=== PATIENT | male | born 2000 | race Caucasian/White ===

== ENCOUNTER 2020-07-07 05:43 | Day surgery (SDC) | payer OTHER, SELFPAY ==
[2020-07-07 06:16] VITALS: BP 146/72; PULSE 70; RESP 14; TEMP 37.1; O2SAT 100; BMI 26.6
[2020-07-07] MEDS: Lactated Ringers 1,000 ML 100 ML IV ×2 (06:27→08:30)
[2020-07-07] MEDS: Cefazolin 2 GM in 0.9% Normal Saline 100 ML IV (07:28)
[2020-07-07] MEDS: Bupiv/Epi 0.25% 30 ML Vial (07:46)
[2020-07-07] MEDS: Epinephrine (1 mg/ml) 1 MG/ML VIAL (07:46)
[2020-07-07 08:31] VITALS: BP 144/80; BP 146/72; PULSE 86; RESP 18; TEMP 36.1; O2SAT 100
--- NOTE | 2020-07-07 08:35 | PCM.OPRPT ---
Report of Operation Date of Procedure: 07/07/20 Pre-Operative Diagnosis: Locked, bucket handle tear lateral meniscus right knee Post-Operative Diagnosis: Same. Horizontal, peripheral red-red tear Surgery/Procedure Performed:: D & O arthroscopy with lateral meniscus repair right knee Description of Surgical Findings:: Primary Surgeon/Physician: Cl Coleman pre owned sales consultant: none pre owned sales consultant: Pre-Operative Diagnosis: Locked lateral meniscus tear right knee Post-Operative Diagnosis: same, horizontal peripheral, red-red tear Surgery/Procedure Performed: Arthroscopy with lateral meniscal repair right knee Estimated Blood Loss: minimal Specimen's Removed: none Type of Anesthesia: general ASA Class: 1 Indications: [ ] Patient has failed conservative measures and at this point has elected to undergo the above procedure. Procedure Description: The patient was greeted in the preoperative area. The [right ] knee was marked with surgical marker. Preoperative antibiotics were administered. The patient was then taken to the operating suite and placed in a supine position on operating room table. After adequate anesthesia was obtained and airway was secured a well-padded tourniquet was placed on patient's affected extremity. Leg was then prepped and draped in usual sterile fashion. Surgical timeout was performed and confirmed with all present and surgery was commenced. Standard anteromedial anterolateral portals were made and a 30? arthroscope was then inserted into the knee. [The patellofemoral joint, medial compartment, ACL and PCL were all without pathology. Entering the lateral compartment revealed the the was a horizontal tear of the lateral meniscus which was flipped forward between the lateral femoral condyle and the lateral tibial plateau. A probe was used through the medial portal to reduce the lateral meniscus back to it's normal position. The meniscal tissue was in excellent condition. The was a tear peripherally, just anterior to the popliteal hiatus. A meniscal rasp was used to stimulate bleeding in the interface of the tear. Subsequently, an Arthrex Cinch suture was employed in a horizontal mattress fashion to stabilize and repair the meniscus. Probing then revealed that the lateral meniscus was fixed in a stable fashion.]. At this point all instruments were removed. Arthroscopic portals were closed in a standard fashion. 30 cc of 0.5% Marcaine was then injected into the knee. Well-padded nonadherent dressing was applied and secured with an Waylon wrap. The patient was taken to the recovery room in stable condition. Type of Anesthesia:: General Anesthesiologist: Charlie Cope - Admit VTE Documentation VTE Present on Admission: No VTE Mechan Device Prophylaxis: SCD's, Thigh High KYLE Hose VTE Pharm Prophylaxis ordered?: Yes
[2020-07-07 08:45] VITALS: BP 123/97; BP 146/72; PULSE 78; RESP 18; O2SAT 100
[2020-07-07 09:00] VITALS: BP 144/88; BP 146/72; PULSE 82; RESP 16; O2SAT 100
[2020-07-07 09:12] VITALS: BP 137/78; BP 146/72; PULSE 76; RESP 16; TEMP 36.4; O2SAT 100
[2020-07-07] MEDS: HYDROcodone Bitartrate/Apap 5/325 Tablet PO (09:42)
[2020-07-07 10:10] VITALS: BP 133/67; BP 146/72; PULSE 80; RESP 16; TEMP 36.3; O2SAT 100
== END 2020-07-07 10:25 | disposition home or self-care (01) ==
LOC: SDC 05:45 → AC 05:47
PROVIDERS: PCP Family Medicine; Referring Provider Orthopaedic Surgery; Visit Provider Orthopaedic Surgery
PROC: (CPT 29870; principal; 2020-07-07 07:10)
DX: S83.281A Other tear of lateral meniscus, current injury, right knee, initial encounter (principal); X50.1XXA Overexertion from prolonged static or awkward postures, initial encounter; Y93.89 Activity, other specified; Y92.9 Unspecified place or not applicable; Y99.9 Unspecified external cause status; F17.200 Nicotine dependence, unspecified, uncomplicated
CPT/HCPCS: 01400; 29882; 87426; J7120; J2405